=== PATIENT | female | born 1990 | race Caucasian/White ===

== ENCOUNTER 2021-02-23 09:35 | Emergency (ER) | payer OTHER ==
[~2021-02-23 09:35] MED LIST: PREDNISONE20 MG PO; PROVENTIL HFA6.7 GM INH
[2021-02-23 11:10] LABS: RED BLOOD COUNT 4.86 M/UL (4.00-5.10); WHITE BLOOD COUNT 10.1 K/UL (4.5-11.0)
[2021-02-23 11:32] LABS: BUN/CREATININE RATIO 12 (0-10)
== END 2021-02-23 12:16 | disposition home or self-care (01) ==
LOC: ER1 09:35
PROVIDERS: Physician Assistant
DX: R20.2 Paresthesia of skin (principal); J45.909 Unspecified asthma, uncomplicated
CPT/HCPCS: 70450; 80053; 81001; 83735; 84703; 85025; 85379; 93005; 99285

== ENCOUNTER → 2021-04-04 | Outpatient (CLI) | payer OTHER ==
[2021-04-05 08:13] LABS: VITAMIN D, 25-HYDROXY 38.9 ng/mL (30.0-100.0)
[2021-04-05 09:13] LABS: RHEUMATOID ARTHRITIS FACTOR <10.0 IU/mL (0.0-13.9)
[2021-04-05 10:13] LABS: HBSAG SCREEN Negative (Negative); HEP A AB, IGM Negative (Negative); HEP B CORE AB, IGM Negative (Negative); HEP C VIRUS AB <0.1 (0.0-0.9)
[2021-04-05 15:13] LABS: SJOGREN'S ANTI-SS-A <0.2 AI (0.0-0.9); SJOGREN'S ANTI-SS-B <0.2 AI (0.0-0.9)
== END ==
LOC: LAB 11:57
PROVIDERS: Nurse Practitioner Family
DX: Z00.00 Encounter for general adult medical examination without abnormal findings (principal); G44.89 Other headache syndrome; G43.009 Migraine without aura, not intractable, without status migrainosus; R53.83 Other fatigue; R25.2 Cramp and spasm; R20.2 Paresthesia of skin
CPT/HCPCS: 36415; 80074; 80076; 82607; 83921; 84436; 84443; 85652; 86038; 86235; 86431

== ENCOUNTER → 2021-06-09 | Outpatient (CLI) | payer OTHER ==
[~2021-06-09] MED LIST changes: +BENTYL 20MG TAB20 MG PO; +ZOFRAN4 MG PO
== END ==
LOC: EMI 04-23 14:00
DX: G44.89 Other headache syndrome (principal); R20.2 Paresthesia of skin; G93.89 Other specified disorders of brain
CPT/HCPCS: 70553; A9577

== ENCOUNTER → 2021-06-11 | Outpatient (CLI) | payer OTHER | LOC: US 15:00 | DX: N63.0 Unspecified lump in unspecified breast (principal); R76.8 Other specified abnormal immunological findings in serum | CPT/HCPCS: 76641-LT ==

== ENCOUNTER 2021-06-15 08:56 | Emergency (ER) | payer OTHER ==
[~2021-06-15 08:56] MED LIST changes: -BENTYL 20MG TAB20 MG PO; -ZOFRAN4 MG PO
[2021-06-15 11:00] LABS: HEMOGLOBIN 16.8 gm/dl (12.3-15.3); RED BLOOD COUNT 5.67 M/UL (4.00-5.10); WHITE BLOOD COUNT 10.9 K/UL (4.5-11.0)
[2021-06-15 11:32] LABS: BUN/CREATININE RATIO 14 (0-10)
[2021-06-15] MEDS ORDERED: ZOFRAN4 MG PO (15:19)
[2021-06-15] MEDS ORDERED: BENTYL 20MG TAB20 MG PO (15:19)
== END 2021-06-15 15:31 | disposition home or self-care (01) ==
LOC: ER1 08:56
PROVIDERS: Physician Assistant Medical
DX: R10.11 Right upper quadrant pain (principal); R11.2 Nausea with vomiting, unspecified; R51.9 Headache, unspecified; J45.909 Unspecified asthma, uncomplicated; Z79.899 Other long term (current) drug therapy
CPT/HCPCS: 70450; 71045; 80053; 81001; 83690; 84703; 85025; 87086; 96374; 96376; 99284; J2405; J7030; Q9967

== ENCOUNTER → 2021-07-29 | Outpatient (CLI) | payer OTHER ==
[~2021-07-29] MED LIST changes: +BENTYL 20MG TAB20 MG PO; +ZOFRAN4 MG PO
== END ==
LOC: KOH-I 07-10 09:32
DX: G93.9 Disorder of brain, unspecified (principal)
CPT/HCPCS: 71250

== ENCOUNTER → 2021-08-14 | Outpatient (CLI) | payer OTHER | LOC: KOH-I 14:02 | DX: J45.901 Unspecified asthma with (acute) exacerbation (principal) | CPT/HCPCS: 71046 ==

== ENCOUNTER → 2021-08-18 | Outpatient (CLI) | payer OTHER | LOC: EMI 13:54 | DX: R94.02 Abnormal brain scan (principal) | CPT/HCPCS: 70553; A9577 ==

== ENCOUNTER → 2021-09-26 | Outpatient (CLI) | payer OTHER ==
[2021-09-26 09:49] LABS: RBC (AUTOMATED) 200 10^6 (0); WBC (AUTOMATED 2 10^3 (0-5)
[2021-09-26 09:50] LABS: WBC (AUTOMATED 2 10^3 (0-5)
[2021-09-26 10:04] LABS: GLUCOSE,CSF 55 mg/dL (50-80); TOTAL PROTEIN,CSF 28 mg/dL (20-45)
[2021-09-29 19:12] LABS: MYELIN BASIC PROTEIN, CSF 1.9 ng/mL (0.0-2.9)
[2021-09-30 14:14] LABS: CSF IGG INDEX 0.5 (0.0-0.7); CSF/SERUM ALB. INDEX 3 (0-8); IMMUNOGLOBULIN G, QN, SERUM 1000 mg/dL (586-1602)
== END ==
LOC: RAD 07:54
PROVIDERS: Nurse Practitioner Family
DX: G93.9 Disorder of brain, unspecified (principal); R94.02 Abnormal brain scan; H47.10 Unspecified papilledema
CPT/HCPCS: 82040; 82784; 82945; 83873; 83916; 84157; 87015; 87070; 87116; 87205; 87210; 89051